=== PATIENT | male | born 1995 | race Caucasian/White ===

== ENCOUNTER 2019-05-18 11:35 | Outpatient (CLI) | payer OTHER ==
--- NOTE | 2019-05-18 13:18 | RAD ---
LUMBAR SPINE 3 VIEWS: Date: 05/18/19 INDICATION: Disability evaluation. FINDINGS: Lumbar vertebra maintain normal height and alignment. The disc spaces are maintained. Five lumbar-typ e vertebrae. No evidence of spondylolisthesis or spondylolysis. IMPRESSION: Unremarkable lumbar spine. POS: OFF
== END 2019-05-18 11:36 | disposition home or self-care (01) ==
LOC: NAV RAD 11:35
PROVIDERS: ATTEND Family Medicine
DX: Z02.71 Encounter for disability determination (principal); M54.5 Low back pain
CPT/HCPCS: 72100